=== PATIENT | female | born 1985 | race American Indian/Alaskan Native ===

== ENCOUNTER 2017-12-03 06:43 | Day surgery (SDC) | payer BC ==
[~2017-12-03 06:43] MED LIST: NACL 0.9% IR ONE
[2017-12-03] MEDS ORDERED: DILAUDID IV PRN ×2 (08:34→14:34)
[2017-12-03] MEDS ORDERED: DEMEROL IV PRN (08:34)
[2017-12-03] MEDS ORDERED: ZOFRAN IV PRN (08:34)
[2017-12-03] MEDS ORDERED: NACL BACTERIOSTATIC INFILTRATI ONE (08:41)
[2017-12-03] MEDS ORDERED: LACTATED RINGERS 1,000 ML IV SCH ×2 (09:00→10:00)
[2017-12-03] MEDS ORDERED: VERSED IV NR (09:00)
[2017-12-03] MEDS ORDERED: ANCEF/STERILE WATER 2 GM/20 ML IV NR (09:00)
[2017-12-03 09:08] LABS: Basophils # (Auto) 0.1 K/mm3 (0.0-0.1); Basophils % (Auto) 0.9 % (0.0-1.8); Eosinophils % (Auto) 0.7 % (0.0-4.3); Hematocrit 40.1 % (30.3-42.9); Hemoglobin 13.3 gm/dl (10.1-14.3); Lymphocytes # (Auto) 1.8 K/mm3 (1.2-5.4); Lymphocytes % (Auto) 30.2 % (13.4-35.0); Mean Corpuscular HGB Conc 33 % (30-34); Mean Corpuscular Hemoglobin 28 pg (28-32); Mean Corpuscular Volume 83 fl (79-97); Monocytes # (Auto) 0.5 K/mm3 (0.0-0.8); Monocytes % (Auto) 7.7 % (0.0-7.3); Platelet Count 257 K/mm3 (140-440); Red Blood Count 4.83 M/mm3 (3.65-5.03); Red Cell Distribution Width 14.4 % (13.2-15.2)
[2017-12-03] MEDS ORDERED: SUBLIMAZE ONE ×2 (10:48→12:00)
[2017-12-03] MEDS ORDERED: DIPRIVAN 10 MG/ML IV ONE ×2 (10:48→12:03)
[2017-12-03] MEDS ORDERED: NACL 0.9% IR ONE (11:48)
[2017-12-03] MEDS ORDERED: XYLOCAINE MPF 2% ONE (11:59)
[2017-12-03] MEDS ORDERED: BLOXIVERZ ONE (11:59)
[2017-12-03] MEDS ORDERED: ZEMURON IV ONE (11:59)
[2017-12-03] MEDS ORDERED: ROBINUL ONE (11:59)
[2017-12-03] MEDS ORDERED: LACTATED RINGERS 1,000 ML ONE (11:59)
[2017-12-03] MEDS ORDERED: DECADRON ONE (11:59)
[2017-12-03] MEDS ORDERED: NEO SYNEPHRINE/NS Syringe(OR USE) IV ONE (13:10)
[2017-12-03] MEDS ORDERED: DILAUDID ONE (13:43)
--- NOTE | 2017-12-03 13:57 | Operative Report ---
PREOPERATIVE DIAGNOSIS: Macromastia. POSTOPERATIVE DIAGNOSIS: Macromastia. PROCEDURE: Bilateral reduction mammoplasty. SURGEON: David Aponte MD WEARING APPAREL SHAKER: Amilcar Saab CSA FINDINGS: 560 gm removed on the right breast, 520 gm removed from the left breast. DESCRIPTION OF PROCEDURE: The patient was brought to the operating room and placed on the table in supine position. Following administration of general anesthesia, bilateral breasts were prepped with Betadine solution and draped in the usual sterile manner. A #10 blade scalpel was used to make a circumareolar skin incision followed by epithelialization of an inferior dermal pedicle. Modified Wagoner pattern skin markings were incised with scalpel, deepened through subcutaneous fat and breast tissue using the electrocautery. Skin flaps were raised in standard manner as was fashioning of an inferior central mound pedicle. Breast tissue was resected and sent to pathology as specimen. Hemostasis controlled using electrocautery. Closure was performed over 10 mm FAVIO drains using interrupted and running subcuticular 2-0 Monocryl sutures. Mastisol, Steri-Strips, and sterile dressings applied. The patient tolerated the procedure well and returned to recovery room in stable condition. JOB# [id number] FTW/NTS
[2017-12-03] MEDS ORDERED: NORCO 7.5/325 PO SCH (15:51)
[2017-12-03 18:46] VITALS: BP 130/76
== END 2017-12-03 16:31 | disposition home or self-care (01) ==
LOC: OR 06:43
PROVIDERS: ATTEND Plastic Surgery
DX: N62 Hypertrophy of breast (principal); E66.9 Obesity, unspecified; Z68.34 Body mass index [BMI] 34.0-34.9, adult; N64.89 Other specified disorders of breast; Z79.899 Other long term (current) drug therapy; Z98.890 Other specified postprocedural states
CPT/HCPCS: 19318; 36415; 81025; 85025; 88305; J0690; J1100; J1170; J2250; J2370; J2704; J2710; J3010; J7120